=== PATIENT | female | born 1955 | race Caucasian/White ===

== ENCOUNTER → 2019-07-09 | Outpatient (CLI) | payer OTHER | END | disposition home or self-care (01) | LOC: GI 06:30 | DX: Z12.11 Encounter for screening for malignant neoplasm of colon (principal); K64.8 Other hemorrhoids; M10.9 Gout, unspecified; Z90.710 Acquired absence of both cervix and uterus; Z98.890 Other specified postprocedural states; Z91.040 Latex allergy status; Z88.8 Allergy status to other drugs, medicaments and biological substances; Z79.899 Other long term (current) drug therapy; Z80.3 Family history of malignant neoplasm of breast; Z88.2 Allergy status to sulfonamides ==

== ENCOUNTER → 2019-07-16 | Outpatient (CLI) | payer OTHER | LOC: ULTRA 08:18 | DX: M81.0 Age-related osteoporosis without current pathological fracture (principal); M85.89 Other specified disorders of bone density and structure, multiple sites ==

== ENCOUNTER → 2019-07-27 | Outpatient (CLI) | payer OTHER | LOC: CAT 14:16 | DX: K83.8 Other specified diseases of biliary tract (principal) ==

== ENCOUNTER → 2019-08-13 | Outpatient (CLI) | payer OTHER | LOC: ULTRA 08:25 | DX: N13.30 Unspecified hydronephrosis (principal); N28.89 Other specified disorders of kidney and ureter ==

== ENCOUNTER → 2019-08-27 | Outpatient (CLI) | payer OTHER | LOC: CAT 08:37 | DX: N20.0 Calculus of kidney (principal); N13.30 Unspecified hydronephrosis ==